=== PATIENT | female | born 1970 | race Two or more races ===

== ENCOUNTER 2023-06-22 12:15 | Inpatient (IN) | payer OTHER ==
[~2023-06-22] VITALS: Ht 162.6 cm; Wt 99.8 kg
[2023-06-22 10:51] LABS: URINE APPEARANCE Clear; URINE BILIRRUBIN Negative (NEGATIVE); URINE BLOOD Negative; URINE COLOR Yellow; URINE GLUCOSE Negative (NEGATIVE); URINE LEUKOCYTE Negative; URINE NITRATE Negative; URINE PROTEIN Negative (NEGATIVE); URINE UROBILINOGEN 0.2 E.U./dl
[2023-06-22 10:55] LABS: URINE BACTERIA 249.4 uL (0.0-1933); URINE RBC 2.2 uL (0.0-20.8); URINE WBC 1.8 uL (0.0-23.2)
[2023-06-22 10:57] LABS: HEMATOCRIT 32.9 % (36.0-45.00); HEMOGLOBIN 10.4 g/dL (12.0-15.00); MEAN CORPUSCULAR HEMOGLOBIN 21.8 pg (27.00-32.0); MEAN CORPUSCULAR HGB CONC 31.7 g/dl (32.0-36.0); PLATELET COUNT 297 K/uL (150-450); RED BLOOD COUNT 4.79 M/uL (4.00-6.00)
[2023-06-22 10:58] LABS: MEAN CELL VOLUME 68.8 fL (80.00-100.00); RED CELL DISTRIBUTION WIDTH 20.9 % (11.5-14.5)
[2023-06-22 11:16] LABS: INR < 0.93; PARTIAL THROMBOPLASTIN TIME 31.2 SECONDS (22.0-34.0); PROTHROMBIN TIME 9.8 SECONDS (9.0-11.5)
[2023-06-22 11:32] LABS: ALBUMIN 3.4 gm/dL (3.4-5.0); BILIRUBIN TOTAL 0.53 mg/dL (0.3-1.2); CALCIUM 8.8 mg/dL (8.5-10.1); CREATININE SERUM 0.59 mg/dL (0.55-1.02); GFR 107.46; GLOBULINA 3.8 G/DL (2.4-3.5); POTASSIUM 3.96 mEq/L (3.5-5.1); TOTAL PROTEIN 7.2 gm/dL (6.4-8.2)
[2023-06-28 18:32] LABS: HEMOGLOBIN 10.8 g/dL (12.0-15.00); MEAN CELL VOLUME 70.4 fL (80.00-100.00); MEAN CORPUSCULAR HEMOGLOBIN 21.8 pg (27.00-32.0); PLATELET COUNT 295 K/uL (150-450); RED BLOOD COUNT 4.97 M/uL (4.00-6.00); RED CELL DISTRIBUTION WIDTH 21.8 % (11.5-14.5)
[2023-06-30] MEDS ORDERED: POLY119PG PO (06:52)
[2023-06-30] MEDS ORDERED: IBUPROFEN800 MG PO (06:52)
[2023-06-30] MEDS ORDERED: GABAPENTIN300 MG PO (06:52)
[2023-06-30] MEDS ORDERED: SIMETHICONE125 M1 PO (06:53)
== END 2023-06-30 09:35 | disposition home or self-care (01) | DRG 743 ==
LOC: OB/GYN 06-28 05:11 → O/R 06-28 05:11 → OB/GYN 06-28 09:00
PROVIDERS: ADMIT Obstetrics & Gynecology; ATTEND Obstetrics & Gynecology
PROC: 0UT20ZZ Resection of Bilateral Ovaries, Open Approach (ICD-10-PCS; 2023-06-28)
PROC: 0UT70ZZ Resection of Bilateral Fallopian Tubes, Open Approach (ICD-10-PCS; 2023-06-28)
PROC: 0UT90ZZ Resection of Uterus, Open Approach (ICD-10-PCS; principal; 2023-06-28 09:00)
DX: D25.1 Intramural leiomyoma of uterus (principal); N83.01 Follicular cyst of right ovary; N83.02 Follicular cyst of left ovary; Z20.822 Contact with and (suspected) exposure to COVID-19